=== PATIENT | female | born 1950 | race Caucasian/White ===

== ENCOUNTER 2022-06-03 17:09 | Outpatient (CLI) | payer MEDICARE, BC, SELFPAY ==
[2022-06-03 21:51] LABS: Chloride* 103 mmol/L (96-114); Potassium* 4.3 mmol/L (3.6-5.1); Sodium* 137 mmol/L (135-149)
[2022-06-03 21:53] LABS: Creatinine* 0.9 mg/dL (0.5-1.5); Estimated Glomerular Filt Rate 69 ml/min
[2022-06-03 21:54] LABS: Blood Urea Nitrogen* 25 mg/dL (7-30); Calcium* 9.4 mg/dL (8.4-10.6); Carbon Dioxide* 25 mmol/L (20-32); Glucose* 113 mg/dL (60-115)
== END 2022-06-03 17:10 | disposition home or self-care (01) ==
PROVIDERS: PCP Internal Medicine; Visit Provider Student in an Organized Health Care Education/Training Program
DX: R19.7 Diarrhea, unspecified (principal)
CPT/HCPCS: 80048; 87045; 87046; 87427

== ENCOUNTER 2022-07-03 11:44 | Outpatient (CLI) | payer MEDICARE, BC, SELFPAY ==
[2022-07-03 09:23] LABS: Cholesterol* 280 mg/dL (90-199); Triglycerides* 64 mg/dL (40-149)
[2022-07-03 09:36] LABS: HDL Cholesterol* 156 mg/dL (>=50); LDL Cholesterol Calculated 111 mg/dL (<100)
== END 2022-07-03 11:45 | disposition home or self-care (01) ==
PROVIDERS: PCP Internal Medicine; Visit Provider Internal Medicine
DX: E78.5 Hyperlipidemia, unspecified (principal)
CPT/HCPCS: 80061

== ENCOUNTER 2023-01-30 14:36 | Outpatient (CLI) | payer MEDICARE, BC, SELFPAY | END 2023-01-30 14:37 | disposition home or self-care (01) | PROVIDERS: PCP Internal Medicine; Visit Provider Internal Medicine | DX: E78.5 Hyperlipidemia, unspecified (principal); G25.81 Restless legs syndrome; R74.8 Abnormal levels of other serum enzymes | CPT/HCPCS: 80076; 82977 ==

== ENCOUNTER 2023-07-24 08:19 | Outpatient (CLI) | payer MEDICARE, BC, SELFPAY | END 2023-07-24 08:20 | disposition home or self-care (01) | LOC: NFLDREF 12:12 | PROVIDERS: PCP Internal Medicine; Referring Provider Internal Medicine; Visit Provider Internal Medicine | DX: E78.5 Hyperlipidemia, unspecified (principal) | CPT/HCPCS: 80061 ==

== ENCOUNTER 2024-01-02 08:35 | Outpatient (CLI) | payer MEDICARE, BC, SELFPAY ==
--- OUTSIDE RECORDS SUMMARY | 2024-01-05 15:51 | XMS_ITS | Clinical Summary ---
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 Active PRAMIPEXOLE DI-HCL (MIRAPEX ORAL) Take by mouth daily for restless leg syndrome-reports 0.375mg dose Active PROPRANOLOL HCL (PROPRANOLOL ORAL) Takes by mouth daily for prevention of migraines- dose not known. Active estrogens, conjugated (PREMARIN) vaginal cream insert 1 gram by vaginal route once daily cyclically, 3 weeks on and 1 week off Active ibuprofen (ADVIL; MOTRIN) 600 mg tablet Take 1 tablet by mouth every 6 hours as needed for pain. 20 0 07/26/2009 Active hydrocodone-acetamin ophen, 5-500 mg, (VICODIN) 5-500 mg Tab Take 1 to 2 tablets by mouth every 4 hours as needed for pain. 20 0 07/26/2009 Active gabapentin (NEURONTIN) 400 mg capsule Take 1 capsule by mouth 3 times daily. 0 05/10/2014 Active nortriptyline (PAMELOR) 10 mg capsule Take 1 capsule by mouth at bedtime. 0 05/10/2014 Active Naratriptan HCl (AMERGE) 1 mg tab Take by mouth every 4 hours if needed. 0 05/10/2014 Active pramipexole (MIRAPEX) 0.25 mg tablet Take 1 tablet by mouth 3 times daily. 0 05/10/2014 Active Active Problems Problem Noted Date Diagnosed Date Symptomatic menopausal or female climacteric sta ave 08/04/2007 Immunizations Name Administration Dates Next Due AMB Influenza, IIV4 PF (=>6 mos Flulaval,Fluzone Fluarix)(Flu Clinic Only) 06/14/2014 Family History Medical History Relation Name Comments Other Father Migraines Hyperlipidemia Mother Other Mother Migraines at me nopause Cancer Paternal Aunt ovarian Relation Name Status Comments Father Alive 96 Mother Alive 93 Paternal Aunt Social History Tobacco Use Types Packs/Day Years Used Date Smoking Tobacco: Never Alcohol Use Standard Drinks/Week Comments Yes 0 (1 standard drink = 0.6 oz pur e alcohol) rare Sex and Gender Information Value Date Recorded Sex Assigned at Not on file Gender Identity Not on file Sexual Orientation Not on file Obstetrics History Last Filed Vital Signs Vital Sign Reading Time Taken Comments Blood Pressure 119/76 08/10/2014 1:03 PM FEED PREPARATION OPERATOR tow er Pulse 76 08/10/2014 1:03 PM FEED PREPARATION OPERATOR Temperature 36.5 ??C (97.7 ??F) 07/26/2009 1:35 PM CS T Respiratory Rate 16 07/26/2009 1:35 PM FEED PREPARATION OPERATOR Oxygen Saturation 100% 08/10/2014 1:03 PM FEED PREPARATION OPERATOR Inhaled Oxygen Concentration - - Weight 74.8 kg (164 lb 12.8 oz) 08/10/2014 1:03 PM FEED PREPARATION OPERATOR Height 175 cm (5' 8.9) 08/10/2014 1:03 PM FEED PREPARATION OPERATOR Body Mass Index 24.41 08/10/2014 1:03 PM FEED PREPARATION OPERATOR Plan of Treatment Health Maintenance Due Date Last Done Comments Tdap 1962 Depression screening for age 12+ 1963 BMI (ht and wt on same day) for age 18+ 1969 Hepatitis C screening for age 18-79 1969 Tetanus booster 1971 Colonoscopy through age 75 1996 Lipids for age 45-75 1996 Mammogram for age 45-75 1996 Zoster (shingles) series for age 50+ (1 of 2) 09/24/19 02 DEXA/DXA scan for age 65+ 2016 Pneumococcal series for age 65+ (1 of 1 - PCV) 017 COVID-19 vaccine series (1 - 2022-24 season) 3 Influenza for age 65+ 04/25/2024 06/14/2014 Advance Directives * Full Code (Latest Code Status on File) Date Activated Date Inactivated Comments 07/26/2009 8:21 AM 07/26/2009 4:01 PM Care Teams Tumbling Instructor Relationship Specialty Start Date End Date Sonal Rosado MD PCP - General Internal Medicine 06/04/13
--- OUTSIDE RECORDS SUMMARY | 2024-01-05 15:51 | XMS_ITS | Encounter Summary ---
Author Name Unknown Organization [facility] Address [address] [place] [address] Care Team Providers Care Provider Relations Consultant Name Role Phone Unavailable Primary Care Provider Unavailabl e Encounter Details Date Type Department Care Team (Late st Contact Info) Description 11/05/2023 Clinical Communication [facility] in [place], [place] [address] [place] [address] Yousif Love M.D., M.S. [address] [place] [address] Social History Tobacco Use Types Packs/Day Years Used Date Smoking Tobacco: Never Smokeless Tobacco: Never [employer] Utilities Answer Date Recorded In the past 12 months has [employer] electric, gas, oil, or water company threatened to shut off services in your home? No 09/07/2023 Social Connection and Isolat ion Panel [NHANES] Answer Date Recorded In a typical week, how many times do you talk on the phone with family, friends, or neighbors? More than three times a week 12/22/2019 How often do you get togethe r with friends or relatives? More than three times a week 12/22/2019 How often do you attend chur ch or christianity services? More than 4 times per year 12/22/2019 Do you belong to any clubs o r organizations such as congregational groups, unions, fraternal or athletic groups, or school groups? Yes 12/22/2019 How often do you attend meet ings of the clubs or organizations you belong to? More than 4 times per year 12/22/2019 Are you , , di vorced, , never , or living with a partner? 12/22/2019 AUDIT-C Answer Date Recorded Q1: How often do you have a drink containing alc ohol? 2-3 times a week 12/22/2019 Q2: How many drinks containi ng alcohol do you have on a typical day when you are drinking? 1 or 2 12/22/2019 Q3: How often do you have si x or more drinks on one occasion? Never 12/22/2019 Overall Financial Resource Strain (CARDIA) Answe r Date Recorded How hard is it for you to pa y for the very basics like food, housing, medical care, and heating? Not hard at all 12/22/2019 PHQ-2 Answer Date Recorded PHQ-2 Score 0 07/08/2022 [facility] of Occupat ional Health - Occupational Stress Questionnaire Answer Date Recorded Do you feel stress - tense, restless, nervous, or anxious, or unable to sleep at night because your mind is troubled all the time - these days? Not at all 12/22/2019 Exercise Vital Sign Answer Date Recorde d On average, how many days pe r week do you engage in moderate to strenuous exercise (like a brisk walk)? 4 days 09/07/2023 On average, how many minutes do you engage in exercise at this level? 50 min 09/07/2023 Hunger Vital Sign Answer Date Recorded Within the past 12 months, y ou worried that your food would run out before you got the money to buy more. Never true 09/07/19 24 Within the past 12 months, t he food you bought just didn't last and you didn't have money to get more. Never true 09/07/2023 PRAPARE - Transportation Answer Date Re corded In the past 12 months, has l ack of transportation kept you from medical appointments or from getting medications? No 08/25 In the past 12 months, has l ack of transportation kept you from meetings, work, or from getting things needed for daily living? No 09/07/2023 Nutrition Answer Date Recorded Nutrition: EVOO Fat Source Unknown 09/07 On average, how many serving s of fruits and vegetables do you eat per day (serving size is equal to 1 cup or approximately the size of a tennis ball)? 3-5 09/07/2023 Dental Answer Date Recorded Dental: Regular Dentist Yes 09/07/19 Employment Answer Date Recorded Employment status Retired 09/07/2023 Housing Stability Answer Date Recorded What is your living situation today? I have a [facility] place to live 09/07/2023 Education Answer Date Recorded What is the highest level of school you have completed or the highest degree you have received? Master's degree (e.g., MA, MS, Sandy, MEd, CUSTOMER RELATIONS SPECIALIST, GIAN) 12/22/2019 Sex and Gender Information Value Date Recorded Sex Assigned at Female 09/07/2023 3:25 PM TRANSMITTER ENGINEER IN CHARGE Gender Identity Female 09/07/2023 3:25 PM TRANSMITTER ENGINEER IN CHARGE Sexual Orientation Straight 09/07/2023 3: 25 PM TRANSMITTER ENGINEER IN CHARGE documented as of this encounter Miscellaneous Notes * Telephone Encounter - Aneta Escobar R.N. - 11/12/2023 10:46 AM CDT Phone call was returned to [facility] in [place], [place] and spoke with pharmacist. Pharmacist was clarifying dosage of pregabalin. Patient is to take one 150 mg capsule of pregabalin 2 hours prior to bedtime and then using the 50 mg capsule titrating up the dosage every 7 days to a maximum of 300 mg or stopping at the lowest dose that controls her symptoms. documented in this encounter Plan of Treatment Not on file documented as of this encounter Visit Diagnoses Not on filedocumented in this encounter
--- OUTSIDE RECORDS SUMMARY | 2024-01-05 15:51 | XMS_ITS | Encounter Summary ---
Author Name Unknown Organization [facility] Address [address] [place] [address] Care Team Providers Care Oil Program Compliance Specialist Name Role Phone Unavailable Primary Care Provider Unavailabl e Encounter Details Date Type Department Care Team (Late st Contact Info) Description 09/23/2023 Clinical Communication Department of Infusion Therapy in [place], [place] [address] [place] [address] Jessi Flores, RLillianaN., [facility] Social History Tobacco Use Types Packs/Day Years Used Date Smoking Tobacco: Never Smokeless Tobacco: Never [facility] Utilities Answer Date Recorded In the past 12 months has e electric, gas, oil, or water company threatened [...] often do you attend chur ch or sabianism services? More than 4 times per year 12/22/2019 Do you belong to any clubs o r organizations such as pentecostal groups, unions, fraternal or athletic groups, or [...] Answer Date Recorded PHQ-2 Score 0 07/08/2022 [facility] of Occupat ional Health - Occupational Stress [...] your living situation today? I have a [facility] place to live 09/07/2023 Education Answer Date Recorded What is the highest level of school you have completed or the highest degree you have received? Master's degree (e.g., MA, MS, Sandy, MEd, SPECIALIZED DEVELOPER, GIAN) 12/22/2019 Sex and Gender Information Value Date Recorded Sex Assigned at Female 09/07/2023 3:25 PM AUTOMOTIVE SERVICE PORTER Gender Identity Female 09/07/2023 3:25 PM AUTOMOTIVE SERVICE PORTER Sexual Orientation Straight 09/07/2023 3: 25 PM AUTOMOTIVE SERVICE PORTER documented as of this encounter Plan of Treatment Not on file documented as of this encounter Visit Diagnoses Not on filedocumented in this encounter
--- OUTSIDE RECORDS SUMMARY | 2024-01-05 15:51 | XMS_ITS | Clinical Summary ---
Author Name Unknown Organization [facility] Address [address] [place] [address] Care Team Providers Care Vehicle Washer Name Role Phone Unavailable Primary Care Provider Unavailabl e Source Comments Patient records contain information from all sites at [facility]. For routine questions regarding patient records, call [phone] during business hours, M-F 8:00 AM - 5:00 PM Central Time. Record requests for emergency care only can be directed to [phone] at any time.[facility] Allergies Active Allergy Reactions Criticality Noted Date Comments Diphenhydramine Hcl Other (see comments) 2018 Per patient should not take due to restless leg syndrome. Promethazine Other (see comments) 12/13/2008 Medications Medication Sig Dispensed Refills Start Date End Date Status metoclopramide (REGLAN) 10 mg tablet Take 10 mg by mouth as needed. 0 06/03/2019 Active naratriptan (AMERGE) 2.5 mg tablet Take 2.5 mg by mouth as needed. 03/27/2020 Active cholecalciferol, vitamin D3, 25 mcg (1,000 Unit) tablet Take 1,000 Units by mouth daily. Active B complex-vitamin (SUPER B-50) capsule Take 1 capsule by mouth daily. Active UNABLE TO FIND Med Name:Magnesium Glycinate 400 mg daily Active gabapentin (NEURONTIN) 300 mg capsule Take 1 capsule (300 mg total) by mouth 3 (three) times a day. 270 capsule 3 06/14/2020 Active ondansetron ODT (ZOFRAN-ODT) 4 mg disintegrating tablet as needed. 04/30/2021 Active methadone (DOLOPHINE) 5 mg tabletIndications:No n Pain Take 1 tablet (5 mg total) by mouth at bedtime Indication: Non Pain. 30 tablet 03/25/2023 Active MAGNESIUM GLYCINATE ORAL Take 175 mg by mouth daily. Active MAGNESIUM CARBONATE ORAL Take 325 mg by mouth daily. Active pregabalin (LYRICA) 50 mg capsule One 50 mg capsule in addition to one 150 mg capsule 2 hours prior to bedtime for RLS. May increase by 50 mg every 7 days to a maximum dosage of 300 mg prior to bedtime. Stop at lowest dose that controls symptoms. 63 capsule 11/05/2023 Active pregabalin (LYRICA) 150 mg capsule Take 1 capsule (150 mg total) by mouth daily. 2 hours prior to bedtime for management of RLS. 30 capsule 1 11/05/2023 Active pregabalin (LYRICA) 75 mg capsule Take 1 capsule (75 mg total) by mouth daily. 30 capsule 12/15/2023 Active Active Problems Problem Noted Date Diagnosed Date Deficiency Iron Personal History 09/15/2023 Restless Leg Syndrome 02/10/2019 Encounters Date Type Department Care Team Description 12/11/2023 Refill [facility] in [place], [place] [address] [place] [address] Yousif Love M.D., M.S. Med Refill 11/05/2023 Clinical Communication [facility] in [place], [place] [address] [place] [address] Yousif Love M.D., M.S. from Last 3 Months Social History Tobacco Use Types Packs/Day Years Used Date Smoking Tobacco: Never Smokeless Tobacco: Never Tobacco Cessation:Counseling Given: Not Answered [facility] Utilities Answer Date Recorded In the past 12 months has [employer], gas, oil, or water [employer] threatened to shut off services in your [...] often do you attend chur ch or rastafari services? More than 4 times per year 12/22/2019 Do you belong to any clubs o r organizations such as episcopal groups, unions, fraternal or athletic groups, or [...] Answer Date Recorded PHQ-2 Score 0 07/08/2022 [facility] of Occupat ional Health - Occupational [...] your living situation today? I have a [facility] place to live 09/07/2023 Education Answer Date Recorded What is the highest level of school you have completed or the highest degree you have received? Master's degree (e.g., MA, MS, Sandy, MEd, LABOR SUPERVISOR, GIAN) 12/22/2019 Sex and Gender Information Value Date Recorded Sex Assigned at Female 09/07/2023 3:25 PM MINER OPERATOR Gender Identity Female 09/07/2023 3:25 PM MINER OPERATOR Sexual Orientation Straight 09/07/2023 3: 25 PM MINER OPERATOR Last Filed Vital Signs Vital Sign Reading Time Taken Comments Blood Pressure 118/60 09/26/2023 1:36 PM MINER OPERATOR Pulse 57 09/26/2023 1:36 PM MINER OPERATOR Temperature 36.4 ??C (97.5 ??F) 09/26/2023 11:[address] Respiratory Rate 16 09/26/2023 1:36 PM MINER OPERATOR Oxygen Saturation - - Inhaled Oxygen Concentration - - Weight 70 kg (154 lb 5.2 oz) 09/10/2023 10:23 AM MINER OPERATOR Height 174.7 cm (5' 8.78) 09/10/2023 10:[address] Body Mass Index 22.94 09/10/2023 10:23 AM MINER OPERATOR Plan of Treatment Health Maintenance Due Date Last Done Comments Bone Density Scan (Osteoporo sis Screen) 1951 CT Colonography 1950 Colonoscopy 1950 FIT 1950 Fasting Glucose for Diabetes Screening 1950 Hepatitis C Screening 1950 Mammogram 1950 DTaP,Tdap,and Td Vaccines (1 - Tdap) 09/27/2016 09/26/2016 COVID-19 Vaccine (6 - 2022-2 4 season) 2023 06/18/2022, 01/08/2022, 07/11/2021, Additional history exists Depression Screening (Annual PHQ-2) 08/25/2023 Fall Risk Screen (Annual) 08/25/2023 Cologuard 07/06/2025 07/06/2022 Colorectal Cancer Screening 07/06/2025 Pneumococcal vaccine (65+ years) Completed 11/07/19 18, 09/26/2016 Zoster Vaccines Completed 10/23/2019, 06/26, 10/11/2011 Influenza Vaccine Completed 07/22/2023, , 05/21/2021, Additional history exists [facility]ANK[facility] [place]nejo [id number]
--- OUTSIDE RECORDS SUMMARY | 2024-01-05 15:51 | XMS_ITS | Encounter Summary ---
Author Name Unknown Organization [facility] Address [address] [place] [address] Care Team Providers Care Credit Controller Name Role Phone Unavailable Primary Care Provider Unavailabl e Reason for Visit * Reason Comments Med Refill Encounter Details Date Type Department Care Team (Late st Contact Info) Description 12/11/2023 Refill [facility] in [place], [place] [address] [place] [phone] Yousif Love M.D., M.S. [address] [place] [phone] Med Refill Social History Tobacco Use Types Packs/Day Years Used Date Smoking Tobacco: Never Smokeless Tobacco: Never [facility] Utilities Answer Date Recorded In the past 12 months has [employer], gas, oil, or water company threatened to [...] often do you attend chur ch or yazidism services? More than 4 times per year 12/22/2019 Do you belong to any clubs o r organizations such as lutheran groups, unions, fraternal or athletic groups, or [...] Answer Date Recorded PHQ-2 Score 0 07/08/2022 [facility] - [facility]ational Stress Questionnaire Answer Date Recorded [...] your living situation today? I have a [facility] place to live 09/07/2023 Education Answer Date Recorded What is the highest level of school you have completed or the highest degree you have received? Master's degree (e.g., MA, MS, Sandy, MEd, TRACK SUPERVISOR, GIAN) 12/22/2019 Sex and Gender Information Value Date Recorded Sex Assigned at Female 09/07/2023 3:25 PM GUMMED TAPE PRESS OPERATOR Gender Identity Female 09/07/2023 3:25 PM GUMMED TAPE PRESS OPERATOR Sexual Orientation Straight 09/07/2023 3: 25 PM GUMMED TAPE PRESS OPERATOR documented as of this encounter Miscellaneous Notes * Telephone Encounter - Yousif Love M.D., M.S. - 12/15/2023 3:42 PM CDT Signed other prescription. documented in this encounter Plan of Treatment Not on file documented as of this encounter Visit Diagnoses Not on filedocumented in this encounter
--- OUTSIDE RECORDS SUMMARY | 2024-01-05 15:51 | XMS_ITS ---
Author Name Unknown Organization [facility] Address [address] [place] [address] Care Team Providers Care Supervisor Orchard Name Role Phone Unavailable Unavailable Unavailable Surgery Details Not on file Complications Check Surgery Details section. Procedure Estimated Blood Loss Check Surgery Details section. Procedure Findings Check Surgery Details section. Procedure Specimens Taken Check Surgery Details section.
--- OUTSIDE RECORDS SUMMARY | 2024-01-05 15:51 | XMS_ITS | Referral Summary ---
Author Name Unknown Organization [facility] Address [address] [place] [address] Care Team Providers Care Medical Billing And Coding Specialist Name Role Phone Unavailable Primary Care Provider Unavailabl e Source Comments Patient records contain information from all sites at [facility]. For routine questions regarding patient records, call [phone] during business hours, M-F 8:00 AM - 5:00 PM Central Time. Record requests for emergency care only can be directed to [phone] at any time.[facility] Encounters Date Type Department Care Team Description 12/11/2023 Refill [facility] in [place], [place] [address] [place] [address] Yousif Love M.D., M.S. Med Refill 11/05/2023 Clinical Communication [facility] in [place], [place] [address] [place] [address] Yousif Love M.D., M.S. from Last 3 Months Allergies Active Allergy Reactions Criticality Noted Date [...] Personal History 09/15/2023 Restless Leg Syndrome 02/10/2019 Social History Tobacco Use Types Packs/Day Years Used Date Smoking Tobacco: Never Smokeless Tobacco: Never Tobacco Cessation:Counseling Given: Not Answered [facility] Utilities Answer Date Recorded In the past 12 months has [employer], [employer], oil, or water [employer] threatened to shut off services in your [...] any clubs o r organizations such as anabaptist groups, unions, fraternal or athletic groups, or [...] Answer Date Recorded PHQ-2 Score 0 07/08/2022 [facility] of Occupat ional Health - Occupational Stress [...] your living situation today? I have a [facility] place to live 09/07/2023 Education Answer Date Recorded What is the highest level of school you have completed or the highest degree you have received? Master's degree (e.g., MA, MS, Sandy, MEd, OUTSOLE HANDLER, GIAN) 12/22/2019 Sex and Gender Information Value Date Recorded Sex Assigned at Female 09/07/2023 3:25 PM FENDER REPAIRER Gender Identity Female 09/07/2023 3:25 PM FENDER REPAIRER Sexual Orientation Straight 09/07/2023 3: 25 PM FENDER REPAIRER Last Filed Vital Signs Vital Sign Reading Time Taken Comments Blood Pressure 118/60 09/26/2023 1:36 PM FENDER REPAIRER Pulse 57 09/26/2023 1:36 PM FENDER REPAIRER Temperature 36.4 ??C (97.5 ??F) 09/26/2023 11:[address] Respiratory Rate 16 09/26/2023 1:36 PM FENDER REPAIRER Oxygen Saturation - - Inhaled Oxygen Concentration - - Weight 70 kg (154 lb 5.2 oz) 09/10/2023 10:23 AM FENDER REPAIRER Height 174.7 cm (5' 8.78) 09/10/2023 10:[address] Body Mass Index 22.94 09/10/2023 10:23 AM FENDER REPAIRER Plan of Treatment Not on file
--- OUTSIDE RECORDS SUMMARY | 2024-01-05 15:51 | XMS_ITS | Encounter Summary ---
Author Name Unknown Organization [facility] Address [address] [place] [address] Care Team Providers Care Fruit Or Nut Farmer Name Role Phone Unavailable Primary Care Provider Unavailabl e Encounter Details Date Type Department Care Team (Late st Contact Info) Description 01/01/2019 [facility] [address] [place] [address] Sonal Rosado M.D. [address] [place] [address] Restless Leg Syndrome (Primary Dx) Social History Tobacco Use Types Packs/Day Years Used Date Smoking Tobacco: Never Assessed Sex and Gender Information Value Date Recorded Sex Assigned at Female 09/07/2023 3:25 PM CATERING CONVENTION SERVICES MANAGER Gender Identity Female 09/07/2023 3:25 PM CATERING CONVENTION SERVICES MANAGER Sexual Orientation Straight 09/07/2023 3: 25 PM CATERING CONVENTION SERVICES MANAGER documented as of this encounter Plan of Treatment Not on file documented as of this encounter Visit Diagnoses Diagnosis Restless Leg Syndrome- Primary documented in this encounter
== END 2024-01-02 08:36 | disposition home or self-care (01) ==
LOC: NFLDREF 01-05 15:43
PROVIDERS: PCP Internal Medicine; Referring Provider Internal Medicine; Visit Provider Internal Medicine
DX: G25.81 Restless legs syndrome (principal)
CPT/HCPCS: 82728; 83540; 83550

== ENCOUNTER 2024-07-27 12:18 | Outpatient (REF) | payer MEDICARE, BC, SELFPAY ==
--- OUTSIDE RECORDS SUMMARY | 2024-07-27 12:21 | XMS_ITS | Referral Summary ---
Author Organization [facility] Address [address] [place] [address] Care Team Providers Care Necktie Centralizing Machine Operator Name Role Phone Unavailable Primary Care Provider Unavailabl e Source Comments Patient records contain information from all sites at [facility]. For routine questions regarding patient records, call [phone] during business hours, M-F 8:00 AM - 5:00 PM Central Time. Record requests for emergency care only can be directed to [phone] at any time.[facility] Allergies Active Allergy Reactions Criticality Noted Date Comments Diphenhydramine Hcl Other (see comments) 2018 Per patient should not take due to restless leg syndrome. Promethazine Other (see comments) 12/13/2008 Medications metoclopramide (REGLAN) 10 mg tablet Take 10 mg by mouth as needed. 0 9 Active naratriptan (AMERGE) 2.5 mg tablet Take 2.5 mg by mouth as needed. 0 Active cholecalciferol, vitamin D3, 25 mcg (1,000 Unit) tablet Take 1,000 Units by mouth daily. Active B complex-vitamin (SUPER B-50) capsule Take 1 capsule by mouth daily. Active UNABLE TO FIND Med Name:Magnesium Glycinate 400 mg daily Active gabapentin (NEURONTIN) 300 mg capsule Take 1 capsule (300 mg total) by mouth 3 (three) times a day. 270 capsule 3 0 Active ondansetron ODT (ZOFRAN-ODT) 4 mg disintegrating tablet as needed. 09/06/202 1 Active methadone (DOLOPHINE) 5 mg tabletIndications: Non Pain Take 1 tablet (5 mg total) by mouth at bedtime Indication: Non Pain. 30 tablet 3 Active MAGNESIUM GLYCINATE ORAL Take 175 mg [...] lowest dose that controls symptoms. 63 capsule 4 Active pregabalin (LYRICA) 150 mg capsule Take 1 capsule (150 mg total) by mouth daily. 2 hours prior to bedtime for management of RLS. 30 capsule 1 4 Active pregabalin (LYRICA) 75 mg capsule Take 1 capsule (75 mg total) by mouth daily. 30 capsule 4 Active Active Problems Problem Noted Date Diagnosed Date Deficiency Iron Personal History 09/15/2023 Restless Leg Syndrome 02/10/2019 Social History Tobacco Use Types Packs/Day Years Used Date Smoking Tobacco: Never Smokeless Tobacco: Never Tobacco Cessation:Counseling Given: Not Answered [facility] [employer] Answer Date Recorded In the past 12 months has [employer], [employer], oil, or water [employer] threatened to shut off services in your [...] often do you attend chur ch or episcopalian services? More than 4 times per year 12/22/2019 Do you belong to any clubs o r organizations such as zoroastrianism groups, unions, fraternal or athletic groups, or [...] Answer Date Recorded PHQ-2 Score 0 07/08/2022 [facility] - Occupational Stress Questionnaire Answer Date Recorded [...] money to buy more. Never true 09/07/19 Within the past 12 months, t he [...] your living situation today? [facility] 09/07/2023 Education Answer Date Recorded What is the highest level of school you have completed or the highest degree you have received? Master's degree (e.g., MA, MS, Sandy, MEd, FIBER OPTIC ASSEMBLY WORKER, GIAN) 12/22/2019 Comments No Sex and Gender Information Value Date Recorded Sex Assigned at Female 09/07/2023 3:25 PM BLOOD BANK LABORATORY TECHNOLOGIST Legal Sex Female 9:24 AM BLOOD BANK LABORATORY TECHNOLOGIST Gender Identity Female 09/07/2023 3:25 PM BLOOD BANK LABORATORY TECHNOLOGIST Sexual Orientation Straight 09/07/2023 3: 25 PM BLOOD BANK LABORATORY TECHNOLOGIST Last Filed Vital Signs Vital Sign Reading Time Taken Comments Blood Pressure 118/60 09/26/2023 1:36 PM BLOOD BANK LABORATORY TECHNOLOGIST Pulse 57 09/26/2023 1:36 PM BLOOD BANK LABORATORY TECHNOLOGIST Temperature 36.4 C (97.5 F) 09/26/2023 11:54 AM BLOOD BANK LABORATORY TECHNOLOGIST Respiratory Rate 16 09/26/2023 1:36 PM BLOOD BANK LABORATORY TECHNOLOGIST Oxygen Saturation - - Inhaled Oxygen Concentration - - Weight 70 kg (154 lb 5.2 oz) 09/10/2023 10:23 AM BLOOD BANK LABORATORY TECHNOLOGIST Height 174.7 cm (5' 8.78) 09/10/2023 10:23 AM C Body Mass Index 22.94 09/10/2023 10:23 AM BLOOD BANK LABORATORY TECHNOLOGIST Plan of Treatment [place] [id number] MEDICARE [facility]
--- OUTSIDE RECORDS SUMMARY | 2024-07-27 12:21 | XMS_ITS | Clinical Summary ---
Author Organization [facility] Address [address] [place] [address] Care Team Providers Care Host/Hostess Ground Name Role Phone Unavailable Primary Care Provider Unavailabl e Source Comments Patient records contain information from all sites at [facility]. For routine questions regarding patient records, call [phone] during business hours, M-F 8:00 AM - 5:00 PM Central Time. Record requests for emergency care only can be directed to [phone] at any time.[facility] Allergies Active Allergy Reactions Criticality Noted Date [...] Tobacco: Never Tobacco Cessation:Counseling Given: Not Answered [facility] [employer] Answer Date Recorded In the past 12 months has Private Company, [employer], oil, or water [employer] threatened to shut off services in your [...] often do you attend chur ch or anglican services? More than 4 times per year 12/22/2019 Do you belong to any clubs o r organizations such as jewish groups, unions, fraternal or athletic groups, or [...] Answer Date Recorded PHQ-2 Score 0 07/08/2022 [facility] - Occupational Stress Questionnaire Answer Date Recorded [...] your living situation today? I have a [facility] place to live 09/07/2023 Education Answer Date Recorded What is the highest level of school you have completed or the highest degree you have received? Master's degree (e.g., MA, MS, Sandy, MEd, CLINIC ADMINISTRATOR, GIAN) 12/22/2019 Comments No Sex and Gender Information Value Date Recorded Sex Assigned at Female 09/07/2023 3:25 PM EXTRUSION MACHINE OPERATOR Legal Sex Female 9:24 AM EXTRUSION MACHINE OPERATOR Gender Identity Female 09/07/2023 3:25 PM EXTRUSION MACHINE OPERATOR Sexual Orientation Straight 09/07/2023 3: 25 PM EXTRUSION MACHINE OPERATOR Last Filed Vital Signs Vital Sign Reading Time Taken Comments Blood Pressure 118/60 09/26/2023 1:36 PM EXTRUSION MACHINE OPERATOR Pulse 57 09/26/2023 1:36 PM EXTRUSION MACHINE OPERATOR Temperature 36.4 C (97.5 F) 09/26/2023 11:54 AM EXTRUSION MACHINE OPERATOR Respiratory Rate 16 09/26/2023 1:36 PM EXTRUSION MACHINE OPERATOR Oxygen Saturation - - Inhaled Oxygen Concentration - - Weight 70 kg (154 lb 5.2 oz) 09/10/2023 10:23 AM EXTRUSION MACHINE OPERATOR Height 174.7 cm (5' 8.78) 09/10/2023 10:23 AM C Body Mass Index 22.94 09/10/2023 10:23 AM EXTRUSION MACHINE OPERATOR Plan of Treatment Health Maintenance Due Date Last Done Comments Bone Density Scan (Osteoporosis Screen) 1951 CT Colonography 1950 Colonoscopy 1950 FIT 1950 Fasting Glucose for Diabetes Screening 1950 Hepatitis C Screening 1950 Mammogram 1950 DTaP,Tdap,and Td Vaccines (1 - Tdap) 09/27/2016 09/26/2016 Depression Screening (Annual PHQ-2) 08/25/2023 Fall Risk Screen (Annual) 08/25/2023 COVID-19 Vaccine ( season) 2024 06/18/2022, 01/08/2022, 07/11/2021, Additional history exists Influenza Vaccine (#1) 2024 3, 07/11/2022, 05/21/2021, Additional history exists Cologuard 07/06/2025 07/06/2022 Colorectal Cancer Screening 07/06/2025 Pneumococcal vaccine (65+ years) Completed 11/06/2017, 09/26/2016 Zoster Vaccines Completed 10/23/2019, 06/26, 10/11/2011 IPV Vaccines Aged Out No longer eligi ble based on patient's age to complete this topic Insurance [place] [id number] MEDICARE [facility] [place]ANK[place] [id number]
--- OUTSIDE RECORDS SUMMARY | 2024-07-27 12:21 | XMS_ITS | Encounter Summary ---
Author Organization [facility] Address [address] [place] [address] Care Team Providers Care Veneer Jointer Helper Name Role Phone Unavailable Primary Care Provider Unavailabl e Encounter Details Date Type Department Care Team (Late st Contact Info) Description 01/01/2019 [facility] [address] [place] [address] Sonal Rosado M.D. [address] [place] [address] Restless Leg Syndrome (Primary Dx) Social History Tobacco Use Types Packs/Day Years Used Date Smoking Tobacco: Never Assessed Comments Unknown Sex and Gender Information Value Date Recorded Sex Assigned at Female 09/07/2023 3:25 PM FILLER MIXER Legal Sex Female 9:24 AM FILLER MIXER Gender Identity Female 09/07/2023 3:25 PM FILLER MIXER Sexual Orientation Straight 09/07/2023 3: 25 PM FILLER MIXER documented as of this encounter Plan of Treatment Not on file documented as of this encounter Visit Diagnoses Diagnosis Restless Leg Syndrome- Primary documented in this encounter
--- OUTSIDE RECORDS SUMMARY | 2024-07-27 12:21 | XMS_ITS ---
Author Organization [facility] Address [address] [place] [address] Care Team Providers Care Networking Technician Name Role Phone Unavailable Unavailable Unavailable Surgery Details Not on file Complications Check Surgery Details section. Procedure Estimated Blood Loss Check Surgery Details section. Procedure Findings Check Surgery Details section. Procedure Specimens Taken Check Surgery Details section.
--- OUTSIDE RECORDS SUMMARY | 2024-07-27 12:21 | XMS_ITS | Clinical Summary ---
Author Organization [facility] Address [place], [place] [address] Care Team Providers Care Microbiology Professor Name Role Phone Sonal Rosado MD Primary Care Provider [phone] Allergies Active Allergy Reactions Criticality Noted Date [...] Migraines Hyperlipidemia Mother Other Mother Migraines at mo nopause Cancer Paternal Aunt ovarian Relation Name [...] Comments Blood Pressure 119/76 08/10/2014 1:03 PM SHIP RIGGER APPRENTICE tow er Pulse 76 08/10/2014 1:03 PM SHIP RIGGER APPRENTICE Temperature 36.5 C (97.7 F) 07/26/2009 1:35 PM SHIP RIGGER APPRENTICE Respiratory Rate 16 07/26/2009 1:35 PM SHIP RIGGER APPRENTICE Oxygen Saturation 100% 08/10/2014 1:03 PM SHIP RIGGER APPRENTICE Inhaled Oxygen Concentration - - Weight 74.8 kg (164 lb 12.8 oz) 08/10/2014 1:03 PM SHIP RIGGER APPRENTICE Height 175 cm (5' 8.9) 08/10/2014 1:03 PM SHIP RIGGER APPRENTICE Body Mass Index 24.41 08/10/2014 1:03 PM SHIP RIGGER APPRENTICE Plan of Treatment Health Maintenance Due Date [...] PCV) 017 COVID-19 vaccine series (1 - 2023- season) Influenza for age 65+ 04/25/2024 06/14/2014 Advance Directives * Full Code (Latest Code Status on File) Date Activated Date Inactivated Comments 07/26/2009 8:21 AM 07/26/2009 4:01 PM Care Teams Microbiology Professor Relationship Specialty Start Date End Date Sonal Rosado MD PCP - General Internal Medicine 06/04/13
[2024-07-27 12:51] LABS: Iron* 94 ug/dL (37-170)
[2024-07-27 13:01] LABS: Percent Iron Saturation 34 % (20-50); Total Iron Binding Capacity 278 ug/dL (265-497)
== END 2024-07-27 12:19 | disposition home or self-care (01) ==
LOC: NPINS 12:18
PROVIDERS: PCP Internal Medicine; Visit Provider Psychiatry & Neurology Sleep Medicine
DX: G25.81 Restless legs syndrome (principal); D50.9 Iron deficiency anemia, unspecified; E78.5 Hyperlipidemia, unspecified
CPT/HCPCS: 80061; 82728; 83540; 83550

== ENCOUNTER 2024-12-03 10:21 | Outpatient (CLI) | payer MEDICARE, BC, SELFPAY ==
[2024-12-03 11:02] LABS: Iron* 116 ug/dL (37-170)
[2024-12-03 11:12] LABS: Percent Iron Saturation 37 % (20-50); Total Iron Binding Capacity 314 ug/dL (265-497)
== END 2024-12-03 10:22 | disposition home or self-care (01) ==
LOC: LAB 01-04 18:05
PROVIDERS: PCP Internal Medicine; Visit Provider Psychiatry & Neurology Sleep Medicine
DX: D50.9 Iron deficiency anemia, unspecified (principal); G25.81 Restless legs syndrome; R77.8 Other specified abnormalities of plasma proteins
CPT/HCPCS: 36415; 82728; 83540; 83550